=== PATIENT | female | born 1980 | race Caucasian/White ===

== ENCOUNTER → 2024-03-05 | Outpatient (CLI) | payer OTHER | LOC: M SOG 07:50 | PROVIDERS: ATTEND Physician Assistant | DX: M25.561 Pain in right knee (principal) ==

== ENCOUNTER → 2025-02-11 | Outpatient (CLI) | payer OTHER | LOC: M SOG 07:54 | PROVIDERS: ATTEND Physician Assistant | DX: M25.561 Pain in right knee (principal) ==

== ENCOUNTER → 2025-02-19 | Outpatient (CLI) | payer OTHER | LOC: M PLARAD 15:10 | PROVIDERS: ATTEND Physician Assistant | DX: M25.561 Pain in right knee (principal); M94.8X6 Other specified disorders of cartilage, lower leg ==

== ENCOUNTER 2025-05-25 06:00 | Day surgery (SDC) | payer OTHER ==
[~2025-05-25] VITALS: Ht 167.6 cm; Wt 71.7 kg
[~2025-05-25 06:00] MED LIST: IBUP80TA PO; LORA-754 PO
[2025-05-25] MEDS ORDERED: MIDAZOLAM INJ 2 MG/2 ML VIAL As Ordered ONE (07:21)
[2025-05-25] MEDS ORDERED: LIDOCAINE 2% 100 MG/5 ML SDV (FOR ANES.) As Ordered ONE (07:22)
[2025-05-25] MEDS: LR 1,000 ML IV SCH (07:23)
[2025-05-25] MEDS: ceFAZolin SODIUM 2 GM in DEXTROSE 5% (D5W) ADV/MINI-BAG 50 ML IV ONE (07:45)
[2025-05-25] MEDS: TRANEXAMIC ACID 100 MG/ML 10ML VIAL As Ordered ONE (07:46)
[2025-05-25] MEDS ORDERED: HYDROmorphone HCL 2 MG/ML 1 ML VIAL As Ordered ONE (07:55)
[2025-05-25] MEDS: LIDOCAINE W/EPINEPHrine 1% 20 ML VIAL As Ordered ONE (08:13)
[2025-05-25] MEDS: EPINEPHrine 1 MG/ML INJ 30 ML MD-VIAL As Ordered ONE (08:24)
[2025-05-25] MEDS ORDERED: LR 1,000 ML IV SCH (08:35)
[2025-05-25] MEDS ORDERED: ONDANSETRON 4MG 2ML VIAL IV PRN (08:35)
[2025-05-25] MEDS: KETOROLAC 30 MG/ML 1 ML VIAL As Ordered ONE (08:45)
[2025-05-25 10:02] VITALS: BP 133/75; TEMP 97.5; O2SAT 99
== END 2025-05-25 10:07 | disposition home or self-care (01) ==
LOC: M SDC 06:00
PROVIDERS: ATTEND Neuromusculoskeletal Medicine, Sports Medicine
DX: M22.41 Chondromalacia patellae, right knee (principal); M25.861 Other specified joint disorders, right knee; M65.861 Other synovitis and tenosynovitis, right lower leg; M22.2X1 Patellofemoral disorders, right knee; M17.11 Unilateral primary osteoarthritis, right knee; Z88.5 Allergy status to narcotic agent; Z91.040 Latex allergy status; Z88.0 Allergy status to penicillin; Z91.048 Other nonmedicinal substance allergy status; Z90.89 Acquired absence of other organs
CPT/HCPCS: 29875; 81025; 93005; J0665; J0666; J0690; J1171; J1885; J2250; J3010

== ENCOUNTER → 2025-09-22 | Outpatient (CLI) | payer OTHER ==
[~2025-09-22] MED LIST changes: +ALLE10TA PO; -LORA-754 PO
== END ==
LOC: M RAD 10:35
PROVIDERS: ATTEND Physical Medicine & Rehabilitation
DX: M47.896 Other spondylosis, lumbar region (principal); M47.897 Other spondylosis, lumbosacral region; M51.362 Other intervertebral disc degeneration, lumbar region with discogenic back pain and lower extremity pain